=== PATIENT | male | born 1985 | race African-American/Black ===

== ENCOUNTER 2018-04-14 23:58 | Emergency (ER) | payer OTHER, SELFPAY ==
[~2018-04-14] VITALS: Ht 198.1 cm; Wt 90.9 kg
[~2018-04-14 23:58] MED LIST: NOCURR
[2018-04-15] MEDS ORDERED: PERTUSS(ACELL),DIPH,TET VAC/PF 0.5 ML VIAL IM ONE ×2 (00:15→00:30)
[2018-04-15 01:30] VITALS: BP 135/74
== END 2018-04-15 01:53 | disposition home or self-care (01) ==
LOC: EMS 23:58
DX: S61.411D Laceration without foreign body of right hand, subsequent encounter (principal); L08.9 Local infection of the skin and subcutaneous tissue, unspecified; F17.210 Nicotine dependence, cigarettes, uncomplicated; F12.90 Cannabis use, unspecified, uncomplicated; W25.XXXD Contact with sharp glass, subsequent encounter
CPT/HCPCS: 90471; 90715

== ENCOUNTER 2018-06-02 19:23 | Emergency (ER) | payer SELFPAY ==
[~2018-06-02] VITALS: Ht 198.1 cm; Wt 90.9 kg
[2018-06-02 19:33] VITALS: BP 139/84
[2018-06-02] MEDS ORDERED: KETOROLAC TROMETHAMINE 10 MG TABLET PO ONE (20:30)
== END 2018-06-02 21:13 | disposition home or self-care (01) ==
LOC: EMS 19:24
DX: M77.8 Other enthesopathies, not elsewhere classified (principal); F12.90 Cannabis use, unspecified, uncomplicated; F17.210 Nicotine dependence, cigarettes, uncomplicated

== ENCOUNTER 2024-02-07 01:53 | Emergency (ER) | payer OTHER ==
[~2024-02-07] VITALS: Ht 198.1 cm; Wt 95.5 kg
[2024-02-07 01:57] VITALS: TEMP 98.2
[2024-02-07 03:12] VITALS: BP 152/95; PULSE 112; RESP 16; O2SAT 96
== END 2024-02-07 04:21 ==
LOC: EMS 01:53
DX: S01.81XA Laceration without foreign body of other part of head, initial encounter (principal); F17.210 Nicotine dependence, cigarettes, uncomplicated; F12.90 Cannabis use, unspecified, uncomplicated; Z98.890 Other specified postprocedural states; W26.8XXA Contact with other sharp object(s), not elsewhere classified, initial encounter; Y93.89 Activity, other specified; Y92.89 Other specified places as the place of occurrence of the external cause; Y99.8 Other external cause status
CPT/HCPCS: 12013; 99283